=== PATIENT | male | born 1945 | race Caucasian/White ===

== ENCOUNTER 2023-03-30 11:40 | Emergency (ER) | payer MEDICARE ==
[~2023-03-30] VITALS: Ht 188 cm; Wt 127.0 kg
[~2023-03-30 11:40] MED LIST: AMLO-212 PO
[2023-03-30] MEDS ORDERED: HYDROCODONE/APAP 5-325MG TABLET PO ONE (12:15)
[2023-03-30] MEDS ORDERED: HYDROCODONE/APAP 5-325MG TABLET ONE (12:18)
[2023-03-30] MEDS ORDERED: HYDR-3980 PO (14:42)
[2023-03-30 15:01] VITALS: BP 118/81; TEMP 98.7; O2SAT 97
== END 2023-03-30 15:02 | disposition home or self-care (01) ==
LOC: ER 11:40
DX: S22.42XA Multiple fractures of ribs, left side, initial encounter for closed fracture (principal); Z79.899 Other long term (current) drug therapy; W10.9XXA Fall (on) (from) unspecified stairs and steps, initial encounter; Y93.89 Activity, other specified; Y92.89 Other specified places as the place of occurrence of the external cause; Y99.8 Other external cause status
CPT/HCPCS: 71250; A4663

== ENCOUNTER 2023-09-26 13:23 | Emergency (ER) | payer MEDICARE ==
[~2023-09-26] VITALS: Ht 188 cm; Wt 120.2 kg
[~2023-09-26 13:23] MED LIST changes: +ALBU8.5H8 INH; +AMOX-430 PO; +AZIT500T4 PO
[2023-09-26 15:05] LABS: BASOPHILS # (AUTO) 0.1 K/UL (0.0-0.2); BASOPHILS % (AUTO) 0.7 % (0.0-2.0); EOSINOPHILS # (AUTO) 0.2 K/uL (0.0-0.7); EOSINOPHILS % (AUTO) 2.3 % (0.0-7.0); HEMATOCRIT 44.3 % (36.7-47.1); HEMOGLOBIN 15.3 g/dL (12.5-16.3); LYMPHOCYTES # (AUTO) 1.8 K/uL (0.8-4.8); LYMPHOCYTES % (AUTO) 25.2 % (20.5-51.5); MEAN CORPUSCULAR HEMOGLOBIN 29.3 uug (23.8-33.4); MEAN CORPUSCULAR HGB CONC 35 g/dL (32.5-36.3); MEAN CORPUSCULAR VOLUME 84.8 fL (73.0-96.2); MONOCYTES # (AUTO) 0.4 K/uL (0.1-1.30); NEUTROPHILS # (AUTO) 4.7 K/uL (1.8-8.9); NEUTROPHILS % (AUTO) 65.8 % (38.5-71.5); PLATELET COUNT (AUTO) 164 K/uL (152-348); RED BLOOD CELL COUNT(AUTO) 5.22 MIL/uL (4.06-5.63); WHITE BLOOD COUNT (AUTO) 7.1 K/uL (3.6-10.2)
[2023-09-26 15:08] LABS: DIFFERENTIAL COMMENT 1
[2023-09-26 15:26] LABS: CALCIUM 8.7 mg/dL (8.5-10.1); CARBON DIOXIDE 29 mmol/L (21-32); CHLORIDE 104 mmol/L (98-107); CREATININE 0.9 mg/dL (0.6-1.3); GLUCOSE 84 mg/dL (74-106); MAGNESIUM 2.3 mg/dL (1.8-2.4); NT-PRO BNP 81 pg/mL (0-125); SODIUM SERUM 138 mmol/L (136-145); UREA NITROGEN, BLOOD 19 mg/dL (7-18)
[2023-09-26] MEDS ORDERED: GUAI120L56 PO (16:38)
[2023-09-26 17:56] VITALS: BP 157/95; TEMP 97.8; O2SAT 94
== END 2023-09-26 17:30 | disposition home or self-care (01) ==
LOC: ER 13:23
DX: J20.8 Acute bronchitis due to other specified organisms (principal); Z79.899 Other long term (current) drug therapy; Z98.890 Other specified postprocedural states; Z20.822 Contact with and (suspected) exposure to COVID-19; Z60.2 Problems related to living alone
CPT/HCPCS: 36415; 71045; 83735; 84484; 85025; A4606; A4663

== ENCOUNTER 2024-08-22 00:27 | Inpatient (IN) | payer MEDICARE ==
[2024-08-22] VITALS (8 sets, daily range): BP systolic 148–159; BP diastolic 83–93; TEMP 97.4–98.1; O2SAT 91–99
[~2024-08-22] VITALS: Ht 188 cm; Wt 129.3 kg
[~2024-08-22 00:27] MED LIST changes: +DOXY-326 PO; +GUAI120L56 PO
[2024-08-22 01:25] LABS: BASOPHILS # (AUTO) 0.1 K/UL (0.0-0.2); BASOPHILS % (AUTO) 1.1 % (0.0-2.0); EOSINOPHILS # (AUTO) 0.2 K/uL (0.0-0.7); EOSINOPHILS % (AUTO) 2.4 % (0.0-7.0); HEMATOCRIT 43.9 % (36.7-47.1); HEMOGLOBIN 15.4 g/dL (12.5-16.3); LYMPHOCYTES # (AUTO) 1.7 K/uL (0.8-4.8); LYMPHOCYTES % (AUTO) 19.9 % (20.5-51.5); MEAN CORPUSCULAR HEMOGLOBIN 29.2 uug (23.8-33.4); MEAN CORPUSCULAR HGB CONC 35 g/dL (32.5-36.3); MEAN CORPUSCULAR VOLUME 83.5 fL (73.0-96.2); MONOCYTES # (AUTO) 0.5 K/uL (0.1-1.30); MONOCYTES % (AUTO) 6.3 % (0.0-11.0); NEUTROPHILS % (AUTO) 70.3 % (38.5-71.5); PLATELET COUNT (AUTO) 150 K/uL (152-348); RED BLOOD CELL COUNT(AUTO) 5.26 MIL/uL (4.06-5.63); RED CELL DISTRIBUTION WIDTH 14.4 % (12.1-16.2); WHITE BLOOD COUNT (AUTO) 8.5 K/uL (3.6-10.2)
[2024-08-22] MEDS: IV NORMAL SALINE 500 ML BAG IV ONE (01:29)
[2024-08-22 01:40] LABS: CALCIUM 8.4 mg/dL (8.5-10.1); CARBON DIOXIDE 28 mmol/L (21-32); CHLORIDE 105 mmol/L (98-107); GLUCOSE 109 mg/dL (74-106); POTASSIUM 3.6 mmol/L (3.5-5.1); SODIUM SERUM 143 mmol/L (136-145); UREA NITROGEN, BLOOD 19 mg/dL (7-18)
[2024-08-22 01:45] LABS: DIFFERENTIAL COMMENT 1
[2024-08-22 02:08] LABS: ALBUMIN 3.2 g/dL (3.4-5.0); BILIRUBIN,DIRECT 0.1 mg/dL (0.0-0.2); BILIRUBIN,TOTAL 0.5 mg/dL (0.2-1.0); TOTAL PROTEIN, SERUM 7.4 g/dL (6.4-8.2)
[2024-08-22] MEDS ORDERED: ACETAMINOPHEN 325 MG TABLET PO PRN (03:00)
[2024-08-22] MEDS ORDERED: REMEDY ESSENTIAL ZINC PASTE 113 GM TP PRN (03:00)
[2024-08-22] MEDS ORDERED: ONDANSETRON 4 MG/2 ML VIAL IV PRN (03:00)
[2024-08-22 07:42] LABS: BASOPHILS # (AUTO) 0.1 K/UL (0.0-0.2); BASOPHILS % (AUTO) 1.4 % (0.0-2.0); EOSINOPHILS # (AUTO) 0.2 K/uL (0.0-0.7); EOSINOPHILS % (AUTO) 2.2 % (0.0-7.0); HEMATOCRIT 40.4 % (36.7-47.1); HEMOGLOBIN 14.2 g/dL (12.5-16.3); LYMPHOCYTES # (AUTO) 1.5 K/uL (0.8-4.8); MEAN CORPUSCULAR HEMOGLOBIN 29.6 uug (23.8-33.4); MEAN CORPUSCULAR HGB CONC 35 g/dL (32.5-36.3); MONOCYTES # (AUTO) 0.5 K/uL (0.1-1.30); MONOCYTES % (AUTO) 7.2 % (0.0-11.0); NEUTROPHILS # (AUTO) 4.7 K/uL (1.8-8.9); NEUTROPHILS % (AUTO) 67.2 % (38.5-71.5); PLATELET COUNT (AUTO) 141 K/uL (152-348); RED BLOOD CELL COUNT(AUTO) 4.81 MIL/uL (4.06-5.63); RED CELL DISTRIBUTION WIDTH 14.2 % (12.1-16.2); WHITE BLOOD COUNT (AUTO) 6.9 K/uL (3.6-10.2)
[2024-08-22 07:52] LABS: DIFFERENTIAL COMMENT 1
[2024-08-22 08:04] LABS: CALCIUM 8.1 mg/dL (8.5-10.1); CARBON DIOXIDE 30 mmol/L (21-32); CHLORIDE 110 mmol/L (98-107); CREATININE 1.1 mg/dL (0.6-1.3); GLUCOSE 92 mg/dL (74-106); MAGNESIUM 2.2 mg/dL (1.8-2.4); PHOSPHOROUS 3.5 mg/dL (2.5-4.9); POTASSIUM 3.3 mmol/L (3.5-5.1); SODIUM SERUM 148 mmol/L (136-145); UREA NITROGEN, BLOOD 19 mg/dL (7-18)
[2024-08-22] MEDS: AMLODIPINE 5 MG TABLET PO SCH (10:21)
[2024-08-22] MEDS: POTASSIUM CHLORIDE 20 MEQ TAB.PRT.SR PO ONE ×2 (10:21→11:37)
[2024-08-22] MEDS: IV 1/2NS 1000 ML 1,000 ML IV SCH (10:22)
[2024-08-22] MEDS: MAGNESIUM HYDROXIDE 30 ML LIQUID UDC PO PRN (20:29)
[2024-08-22] MEDS: ALBUTEROL SULFATE 2.5 MG/3 ML NEBU NEB PRN (22:28)
[2024-08-23] VITALS (10 sets, daily range): BP systolic 139–153; BP diastolic 50–98; TEMP 97.8–98.6; O2SAT 94–97
[2024-08-23] MEDS: IV 1/2NS 1000 ML 1,000 ML IV PRN (07:28)
[2024-08-23] MEDS ORDERED: SWABABLE VALVE TRANSFER SET EA MC ONE (15:30)
[2024-08-23] MEDS ORDERED: IOHEXOL 350 100 ML INFUS..BTL ONE (15:30)
[2024-08-23] MEDS ORDERED: IV NORMAL SALINE 250 ML IV ONE (15:30)
[2024-08-23] MEDS: ASPIRIN EC 81 MG TABLET.DR PO SCH (15:57)
[2024-08-24] VITALS (13 sets, daily range): BP systolic 138–163; BP diastolic 55–87; TEMP 97.9–98.3; O2SAT 92–98
[2024-08-24 06:38] LABS: BASOPHILS # (AUTO) 0.1 K/UL (0.0-0.2); BASOPHILS % (AUTO) 0.9 % (0.0-2.0); EOSINOPHILS # (AUTO) 0.3 K/uL (0.0-0.7); EOSINOPHILS % (AUTO) 3.4 % (0.0-7.0); HEMATOCRIT 41.2 % (36.7-47.1); HEMOGLOBIN 14.3 g/dL (12.5-16.3); LYMPHOCYTES # (AUTO) 1.1 K/uL (0.8-4.8); LYMPHOCYTES % (AUTO) 14.6 % (20.5-51.5); MEAN CORPUSCULAR HEMOGLOBIN 29.2 uug (23.8-33.4); MEAN CORPUSCULAR HGB CONC 35 g/dL (32.5-36.3); MEAN CORPUSCULAR VOLUME 84.3 fL (73.0-96.2); MONOCYTES # (AUTO) 0.5 K/uL (0.1-1.30); MONOCYTES % (AUTO) 6.7 % (0.0-11.0); NEUTROPHILS # (AUTO) 5.7 K/uL (1.8-8.9); NEUTROPHILS % (AUTO) 74.4 % (38.5-71.5); PLATELET COUNT (AUTO) 142 K/uL (152-348); RED BLOOD CELL COUNT(AUTO) 4.89 MIL/uL (4.06-5.63); RED CELL DISTRIBUTION WIDTH 14.2 % (12.1-16.2); WHITE BLOOD COUNT (AUTO) 7.6 K/uL (3.6-10.2)
[2024-08-24 07:13] LABS: DIFFERENTIAL COMMENT 1
[2024-08-24 07:16] LABS: CALCIUM 7.9 mg/dL (8.5-10.1); CARBON DIOXIDE 26 mmol/L (21-32); CHLORIDE 105 mmol/L (98-107); CHOLESTEROL 121 mg/dL (<200); CREATININE 0.8 mg/dL (0.6-1.3); GLUCOSE 92 mg/dL (74-106); HDL CHOLESTEROL 36 mg/dL (40-60); POTASSIUM 3.9 mmol/L (3.5-5.1); SODIUM SERUM 139 mmol/L (136-145); TRIGLYCERIDES 113 MG/DL (30-150); UREA NITROGEN, BLOOD 15 mg/dL (7-18)
[2024-08-24 08:42] LABS: THYROID STIMULATING HORMONE 1.201 mIU/mL (0.358-3.740)
[2024-08-24] MEDS ORDERED: CLONIDINE HCL 0.1 MG TABLET PO PRN (09:15)
[2024-08-24 09:33] LABS: ABG HCO3 24.3 mmol/L (21.0-28.0); ABG PCO2 38.9 mmHg (35.0-48.0); ABG PH 7.414 (7.350-7.450); ABG PO2 63.8 mmHg (83.0-108.0); ABG SITE RIGHT RADIAL; ABG TOTAL HEMOGLOBIN 15.5 G/dL (13.5-17.5); AaDO2 92.7 mmHg; COHb 1.2 % (0.5-1.5); MetHb 0.1 % (0.0-1.5); O2Hb 91.5 % (94.0-98.0)
[2024-08-24 13:42] LABS: C-REACTIVE PROTEIN 0.95 mg/dL (0.00-0.30)
[2024-08-24 13:57] LABS: ETHANOL < 3 MG/DL (0-10)
[2024-08-24] MEDS: CYANOCOBALAMIN 1000 MCG/ML VIAL IM SCH (14:00)
[2024-08-24] MEDS: FOLIC ACID 1 MG TABLET PO SCH (15:04)
[2024-08-24] MEDS: IPRATROPIUM BROMIDE 0.5 MG/2.5 ML NEBU NEB SCH (15:30)
[2024-08-24] MEDS: ALBUTEROL SULFATE 2.5 MG/3 ML NEBU NEB SCH (15:30)
[2024-08-24] MEDS: THIAMINE HCL INJ 200 MG in IV DEXTROSE 5% 50 ML IV SCH (15:40)
[2024-08-25] VITALS (15 sets, daily range): BP systolic 149–163; BP diastolic 89–102; TEMP 97.7–98.2; O2SAT 94–99
[2024-08-25 06:47] LABS: BASOPHILS # (AUTO) 0.1 K/UL (0.0-0.2); BASOPHILS % (AUTO) 1.4 % (0.0-2.0); EOSINOPHILS # (AUTO) 0.2 K/uL (0.0-0.7); HEMATOCRIT 40.8 % (36.7-47.1); LYMPHOCYTES # (AUTO) 1.1 K/uL (0.8-4.8); LYMPHOCYTES % (AUTO) 14.7 % (20.5-51.5); MEAN CORPUSCULAR HEMOGLOBIN 28.9 uug (23.8-33.4); MEAN CORPUSCULAR HGB CONC 34 g/dL (32.5-36.3); MEAN CORPUSCULAR VOLUME 84.5 fL (73.0-96.2); MONOCYTES # (AUTO) 0.5 K/uL (0.1-1.30); MONOCYTES % (AUTO) 6.5 % (0.0-11.0); NEUTROPHILS # (AUTO) 5.5 K/uL (1.8-8.9); NEUTROPHILS % (AUTO) 74.4 % (38.5-71.5); PLATELET COUNT (AUTO) 139 K/uL (152-348); RED BLOOD CELL COUNT(AUTO) 4.83 MIL/uL (4.06-5.63); RED CELL DISTRIBUTION WIDTH 14.4 % (12.1-16.2); WHITE BLOOD COUNT (AUTO) 7.4 K/uL (3.6-10.2)
[2024-08-25 07:10] LABS: DIFFERENTIAL COMMENT 1
[2024-08-25 07:14] LABS: CARBON DIOXIDE 27 mmol/L (21-32); CHLORIDE 105 mmol/L (98-107); CREATININE 0.7 mg/dL (0.6-1.3); GLUCOSE 97 mg/dL (74-106); MAGNESIUM 2.2 mg/dL (1.8-2.4); PHOSPHOROUS 3.3 mg/dL (2.5-4.9); POTASSIUM 3.7 mmol/L (3.5-5.1); SODIUM SERUM 139 mmol/L (136-145); UREA NITROGEN, BLOOD 10 mg/dL (7-18)
[2024-08-25] MEDS: CYANOCOBALAMIN 1000 MCG/ML VIAL IM SCH (08:11)
[2024-08-25] MEDS ORDERED: POTASSIUM CHLORIDE 20 MEQ POWDER PACKET GT ONE (08:15)
[2024-08-25] MEDS: POTASSIUM CHLORIDE 20 MEQ TAB.PRT.SR PO ONE (09:33)
[2024-08-25] MEDS: ENOXAPARIN SODIUM 40 MG/0.4 ML DISP.SYRIN SQ SCH (09:34)
[2024-08-26] VITALS (18 sets, daily range): BP systolic 140–147; BP diastolic 87–95; TEMP 98.1–98.7; O2SAT 92–99
[2024-08-26 07:27] LABS: BASOPHILS # (AUTO) 0.1 K/UL (0.0-0.2); EOSINOPHILS # (AUTO) 0.3 K/uL (0.0-0.7); EOSINOPHILS % (AUTO) 4.3 % (0.0-7.0); HEMATOCRIT 41.6 % (36.7-47.1); HEMOGLOBIN 14.5 g/dL (12.5-16.3); LYMPHOCYTES # (AUTO) 1.2 K/uL (0.8-4.8); LYMPHOCYTES % (AUTO) 16.3 % (20.5-51.5); MEAN CORPUSCULAR HEMOGLOBIN 29.8 uug (23.8-33.4); MEAN CORPUSCULAR HGB CONC 35 g/dL (32.5-36.3); MEAN CORPUSCULAR VOLUME 85.8 fL (73.0-96.2); MONOCYTES # (AUTO) 0.5 K/uL (0.1-1.30); MONOCYTES % (AUTO) 6.3 % (0.0-11.0); NEUTROPHILS # (AUTO) 5.4 K/uL (1.8-8.9); NEUTROPHILS % (AUTO) 72.1 % (38.5-71.5); PLATELET COUNT (AUTO) 152 K/uL (152-348); RED BLOOD CELL COUNT(AUTO) 4.85 MIL/uL (4.06-5.63); RED CELL DISTRIBUTION WIDTH 14.3 % (12.1-16.2); WHITE BLOOD COUNT (AUTO) 7.4 K/uL (3.6-10.2)
[2024-08-26 07:42] LABS: DIFFERENTIAL COMMENT 1
[2024-08-26 07:54] LABS: CALCIUM 8.3 mg/dL (8.5-10.1); CARBON DIOXIDE 27 mmol/L (21-32); CHLORIDE 106 mmol/L (98-107); CREATININE 0.9 mg/dL (0.6-1.3); GLUCOSE 93 mg/dL (74-106); MAGNESIUM 2.3 mg/dL (1.8-2.4); PHOSPHOROUS 2.9 mg/dL (2.5-4.9); POTASSIUM 3.8 mmol/L (3.5-5.1); SODIUM SERUM 140 mmol/L (136-145); UREA NITROGEN, BLOOD 11 mg/dL (7-18)
[2024-08-26] MEDS: FUROSEMIDE 40 MG/4 ML VIAL IV ONE (09:36)
[2024-08-27] VITALS (16 sets, daily range): BP systolic 112–136; BP diastolic 86–97; TEMP 98–98.7; O2SAT 94–99
[2024-08-28] VITALS (16 sets, daily range): BP systolic 129–157; BP diastolic 78–90; TEMP 97.1–98.4; O2SAT 92–100
[2024-08-28] MEDS ORDERED: THIAMINE HCL 200 MG/2 ML VIAL ONE (21:46)
[2024-08-29 00:37] VITALS: BP 116/54; TEMP 98; O2SAT 95
[2024-08-29 02:30] VITALS: O2SAT 94
[2024-08-29 02:40] VITALS: O2SAT 98
[2024-08-29] MEDS ORDERED: ENOX40DI SQ (05:21)
[2024-08-29] MEDS ORDERED: AMLO-212 PO (05:21)
[2024-08-29] MEDS ORDERED: IPRA0.2S48 NEB (05:21)
[2024-08-29] MEDS ORDERED: ONDA4TAB11 PO (05:21)
[2024-08-29] MEDS ORDERED: FOLI1TAB94 PO (05:21)
[2024-08-29] MEDS ORDERED: THIA100T74 PO (05:21)
[2024-08-29] MEDS ORDERED: ALBU2.5V38 NEB ×2 (05:21)
[2024-08-29] MEDS ORDERED: ASPI81TA31 PO (05:21)
[2024-08-29] MEDS ORDERED: ACET325T53 PO (05:21)
[2024-08-29] MEDS ORDERED: CLON-418 PO (05:21)
[2024-08-29] MEDS ORDERED: MAGN400O6 PO (05:21)
[2024-08-29] MEDS ORDERED: CYAN10006 IM (05:21)
[2024-08-29 08:12] LABS: BASOPHILS # (AUTO) 0.1 K/UL (0.0-0.2); EOSINOPHILS # (AUTO) 0.3 K/uL (0.0-0.7); EOSINOPHILS % (AUTO) 3.6 % (0.0-7.0); HEMATOCRIT 42.8 % (36.7-47.1); HEMOGLOBIN 14.8 g/dL (12.5-16.3); LYMPHOCYTES # (AUTO) 1.1 K/uL (0.8-4.8); LYMPHOCYTES % (AUTO) 13.6 % (20.5-51.5); MEAN CORPUSCULAR HEMOGLOBIN 29.7 uug (23.8-33.4); MEAN CORPUSCULAR HGB CONC 35 g/dL (32.5-36.3); MEAN CORPUSCULAR VOLUME 85.8 fL (73.0-96.2); MONOCYTES # (AUTO) 0.5 K/uL (0.1-1.30); MONOCYTES % (AUTO) 6.4 % (0.0-11.0); NEUTROPHILS # (AUTO) 5.9 K/uL (1.8-8.9); NEUTROPHILS % (AUTO) 75.4 % (38.5-71.5); PLATELET COUNT (AUTO) 153 K/uL (152-348); RED BLOOD CELL COUNT(AUTO) 4.98 MIL/uL (4.06-5.63); RED CELL DISTRIBUTION WIDTH 14.7 % (12.1-16.2); WHITE BLOOD COUNT (AUTO) 7.9 K/uL (3.6-10.2)
[2024-08-29 08:22] LABS: DIFFERENTIAL COMMENT 1
[2024-08-29 08:30] LABS: CALCIUM 8.6 mg/dL (8.5-10.1); CARBON DIOXIDE 26 mmol/L (21-32); CHLORIDE 105 mmol/L (98-107); CREATININE 0.8 mg/dL (0.6-1.3); GLUCOSE 95 mg/dL (74-106); MAGNESIUM 2.4 mg/dL (1.8-2.4); PHOSPHOROUS 3.7 mg/dL (2.5-4.9); POTASSIUM 4.4 mmol/L (3.5-5.1); SODIUM SERUM 141 mmol/L (136-145); UREA NITROGEN, BLOOD 18 mg/dL (7-18)
[2024-08-29] MEDS ORDERED: CLON0.1T PO (09:23)
[2024-08-29] MEDS ORDERED: IPRA0.2S6 NEB (09:24)
== END 2024-08-29 03:39 | DRG 152 ==
LOC: ER 00:34 → MEDSURG3 06:11 → MEDSURG1 08-27 08:56
PROVIDERS: ATTEND Internal Medicine
DX: J06.9 Acute upper respiratory infection, unspecified (principal); J96.01 Acute respiratory failure with hypoxia; D68.59 Other primary thrombophilia; E51.2 Wernicke's encephalopathy; G31.9 Degenerative disease of nervous system, unspecified; I11.9 Hypertensive heart disease without heart failure; B96.89 Other specified bacterial agents as the cause of diseases classified elsewhere; J40 Bronchitis, not specified as acute or chronic; R53.1 Weakness; R26.2 Difficulty in walking, not elsewhere classified; E66.01 Morbid (severe) obesity due to excess calories; Z68.36 Body mass index [BMI] 36.0-36.9, adult; Z87.01 Personal history of pneumonia (recurrent); Z96.653 Presence of artificial knee joint, bilateral; Z79.899 Other long term (current) drug therapy; M15.9 Polyosteoarthritis, unspecified; D51.9 Vitamin B12 deficiency anemia, unspecified; H54.7 Unspecified visual loss
CPT/HCPCS: 36415; 36600; 70450; 70496; 71045; 82803; 83735; 83921; 84100; 84443; 84484; 85025; 85730; 86140; 93307; 94640; 94664; 94760; A4663; G0378; G0480; J1650; J1940; J3411; J3420; J3590; J7040; Q9967

== ENCOUNTER → 2024-09-05 14:00 | Inpatient (IN) | payer MEDICARE ==
[2024-08-29] VITALS (12 sets, daily range): BP systolic 123–143; BP diastolic 80–88; TEMP 97.4–97.9; O2SAT 94–97
[2024-08-29] MEDS: ENOXAPARIN SODIUM 40 MG/0.4 ML DISP.SYRIN SQ SCH (11:01)
[2024-08-29] MEDS: CYANOCOBALAMIN 1000 MCG/ML VIAL IM SCH (11:02)
[2024-08-29] MEDS: ASPIRIN 81 MG TAB.CHEW PO SCH (11:02)
[2024-08-29] MEDS: IPRATROPIUM BROMIDE 0.5 MG/2.5 ML NEBU NEB SCH ×2 (11:51→14:43)
[2024-08-29] MEDS: ALBUTEROL SULFATE 2.5 MG/3 ML NEBU NEB SCH (11:51)
[2024-08-29 13:04] LABS: BASOPHILS # (AUTO) 0.1 K/UL (0.0-0.2); BASOPHILS % (AUTO) 1.3 % (0.0-2.0); EOSINOPHILS # (AUTO) 0.3 K/uL (0.0-0.7); EOSINOPHILS % (AUTO) 3.9 % (0.0-7.0); HEMATOCRIT 44.7 % (36.7-47.1); HEMOGLOBIN 15.3 g/dL (12.5-16.3); LYMPHOCYTES # (AUTO) 1.1 K/uL (0.8-4.8); LYMPHOCYTES % (AUTO) 12.4 % (20.5-51.5); MEAN CORPUSCULAR HEMOGLOBIN 29.1 uug (23.8-33.4); MEAN CORPUSCULAR HGB CONC 34 g/dL (32.5-36.3); MEAN CORPUSCULAR VOLUME 85.2 fL (73.0-96.2); MONOCYTES # (AUTO) 0.5 K/uL (0.1-1.30); MONOCYTES % (AUTO) 5.3 % (0.0-11.0); NEUTROPHILS # (AUTO) 6.7 K/uL (1.8-8.9); NEUTROPHILS % (AUTO) 77.1 % (38.5-71.5); PLATELET COUNT (AUTO) 169 K/uL (152-348); RED BLOOD CELL COUNT(AUTO) 5.25 MIL/uL (4.06-5.63); RED CELL DISTRIBUTION WIDTH 14.4 % (12.1-16.2); WHITE BLOOD COUNT (AUTO) 8.7 K/uL (3.6-10.2)
[2024-08-29 13:10] LABS: CALCIUM 8.7 mg/dL (8.5-10.1); CARBON DIOXIDE 28 mmol/L (21-32); CHLORIDE 105 mmol/L (98-107); CREATININE 0.9 mg/dL (0.6-1.3); GLUCOSE 123 mg/dL (74-106); SODIUM SERUM 142 mmol/L (136-145); UREA NITROGEN, BLOOD 19 mg/dL (7-18)
[2024-08-29 13:12] LABS: DIFFERENTIAL COMMENT 1
[2024-08-29 13:23] LABS: THYROID STIMULATING HORMONE 2.546 mIU/mL (0.358-3.740)
[2024-08-29] MEDS: THIAMINE HCL 100 MG TABLET PO SCH (14:27)
[2024-08-30] VITALS (15 sets, daily range): BP systolic 113–141; BP diastolic 56–82; TEMP 97.5–97.8; O2SAT 93–98
[2024-08-30] MEDS: methylPREDNISolone 4 MG TABLET PO ONE ×4 (06:56→20:45)
[2024-08-30] MEDS: AMLODIPINE 5 MG TABLET PO SCH (08:55)
[2024-08-31] VITALS (15 sets, daily range): BP systolic 124–152; BP diastolic 71–90; TEMP 97.6–97.8; O2SAT 93–100
[2024-08-31] MEDS: methylPREDNISolone 4 MG TABLET PO ONE ×4 (06:26→21:40)
[2024-08-31] MEDS: FOLIC ACID 1 MG TABLET PO SCH (09:06)
[2024-09-01] VITALS (17 sets, daily range): BP systolic 108–150; BP diastolic 54–88; TEMP 97.5–98.6; O2SAT 90–100
[2024-09-01] MEDS: methylPREDNISolone 4 MG TABLET PO ONE ×4 (06:43→21:11)
[2024-09-01 07:39] LABS: BASOPHILS % (AUTO) 0.6 % (0.0-2.0); EOSINOPHILS % (AUTO) 0.1 % (0.0-7.0); HEMATOCRIT 41.2 % (36.7-47.1); LYMPHOCYTES # (AUTO) 0.9 K/uL (0.8-4.8); LYMPHOCYTES % (AUTO) 11.4 % (20.5-51.5); MEAN CORPUSCULAR HEMOGLOBIN 29.2 uug (23.8-33.4); MEAN CORPUSCULAR HGB CONC 34 g/dL (32.5-36.3); MEAN CORPUSCULAR VOLUME 85.6 fL (73.0-96.2); MONOCYTES # (AUTO) 0.3 K/uL (0.1-1.30); MONOCYTES % (AUTO) 3.6 % (0.0-11.0); NEUTROPHILS # (AUTO) 6.3 K/uL (1.8-8.9); NEUTROPHILS % (AUTO) 84.3 % (38.5-71.5); PLATELET COUNT (AUTO) 148 K/uL (152-348); RED BLOOD CELL COUNT(AUTO) 4.81 MIL/uL (4.06-5.63); RED CELL DISTRIBUTION WIDTH 14.8 % (12.1-16.2); WHITE BLOOD COUNT (AUTO) 7.5 K/uL (3.6-10.2)
[2024-09-01 07:54] LABS: DIFFERENTIAL COMMENT 1
[2024-09-01 07:59] LABS: CALCIUM 8.5 mg/dL (8.5-10.1); CARBON DIOXIDE 29 mmol/L (21-32); CHLORIDE 108 mmol/L (98-107); CREATININE 0.8 mg/dL (0.6-1.3); GLUCOSE 105 mg/dL (74-106); MAGNESIUM 2.3 mg/dL (1.8-2.4); PHOSPHOROUS 3.7 mg/dL (2.5-4.9); POTASSIUM 3.9 mmol/L (3.5-5.1); SODIUM SERUM 144 mmol/L (136-145); UREA NITROGEN, BLOOD 22 mg/dL (7-18)
[2024-09-01] MEDS: CLONIDINE HCL 0.1 MG TABLET PO PRN (21:13)
[2024-09-02] VITALS (16 sets, daily range): BP systolic 125–160; BP diastolic 70–92; TEMP 97.3–97.8; O2SAT 92–99
[2024-09-02] MEDS: methylPREDNISolone 4 MG TABLET PO ONE ×3 (06:36→21:16)
[2024-09-03] VITALS (13 sets, daily range): BP systolic 113–146; BP diastolic 70–82; TEMP 97.2–99.2; O2SAT 91–100
[2024-09-03] MEDS: methylPREDNISolone 4 MG TABLET PO ONE ×2 (06:06→21:27)
[2024-09-03 08:51] LABS: BASOPHILS # (AUTO) 0.1 K/UL (0.0-0.2); BASOPHILS % (AUTO) 0.6 % (0.0-2.0); EOSINOPHILS # (AUTO) 0.1 K/uL (0.0-0.7); EOSINOPHILS % (AUTO) 1.2 % (0.0-7.0); HEMOGLOBIN 14.4 g/dL (12.5-16.3); LYMPHOCYTES # (AUTO) 1.6 K/uL (0.8-4.8); LYMPHOCYTES % (AUTO) 18.8 % (20.5-51.5); MEAN CORPUSCULAR HEMOGLOBIN 29.3 uug (23.8-33.4); MEAN CORPUSCULAR HGB CONC 34 g/dL (32.5-36.3); MEAN CORPUSCULAR VOLUME 87.2 fL (73.0-96.2); MONOCYTES # (AUTO) 0.6 K/uL (0.1-1.30); MONOCYTES % (AUTO) 6.9 % (0.0-11.0); NEUTROPHILS # (AUTO) 6.1 K/uL (1.8-8.9); NEUTROPHILS % (AUTO) 72.5 % (38.5-71.5); PLATELET COUNT (AUTO) 149 K/uL (152-348); RED BLOOD CELL COUNT(AUTO) 4.93 MIL/uL (4.06-5.63); RED CELL DISTRIBUTION WIDTH 14.8 % (12.1-16.2); WHITE BLOOD COUNT (AUTO) 8.4 K/uL (3.6-10.2)
[2024-09-03 09:01] LABS: DIFFERENTIAL COMMENT 1
[2024-09-03 09:05] LABS: CALCIUM 8.4 mg/dL (8.5-10.1); CARBON DIOXIDE 29 mmol/L (21-32); CHLORIDE 107 mmol/L (98-107); CREATININE 0.9 mg/dL (0.6-1.3); GLUCOSE 83 mg/dL (74-106); MAGNESIUM 2.3 mg/dL (1.8-2.4); PHOSPHOROUS 3.3 mg/dL (2.5-4.9); POTASSIUM 3.6 mmol/L (3.5-5.1); SODIUM SERUM 145 mmol/L (136-145); UREA NITROGEN, BLOOD 25 mg/dL (7-18)
[2024-09-04] VITALS (16 sets, daily range): BP systolic 129–135; BP diastolic 69–91; TEMP 95–98; O2SAT 90–100
[2024-09-04] MEDS: methylPREDNISolone 4 MG TABLET PO ONE (06:16)
[~2024-09-05] VITALS: Ht 188 cm; Wt 129.3 kg
[2024-09-05 07:00] VITALS: O2SAT 98
[2024-09-05 07:15] VITALS: O2SAT 99
[2024-09-05 07:42] VITALS: BP 145/74; TEMP 97.8; O2SAT 94
[2024-09-05 11:00] VITALS: O2SAT 93
[2024-09-05 11:15] VITALS: O2SAT 99
[2024-09-05 12:31] VITALS: BP 122/83; TEMP 97.5; O2SAT 91
[~2024-09-05 14:00] MED LIST changes: +ACET325T53 PO; +ACETAMINOPHEN 325 MG TABLET PO PRN; +ACETAMINOPHEN 325 MG TABLET-SA PATIENTS-PAIN ONLY PO PRN; +ALBU2.5V38 NEB; -ALBU8.5H8 INH; +ALBUTEROL SULFATE 2.5 MG/3 ML NEBU NEB PRN; -AMOX-430 PO; +ASPI81TA31 PO; -AZIT500T4 PO; +CLON-418 PO; +CLON0.1T PO; +CYAN10006 IM; -DOXY-326 PO; +ENOX40DI SQ; +FOLI1TAB94 PO; -GUAI120L56 PO; +IPRA0.2S48 NEB; +IPRA0.2S6 NEB; +MAGN400O6 PO; +MAGNESIUM HYDROXIDE 30 ML LIQUID UDC PO PRN; +ONDA4TAB11 PO; +REMEDY ESSENTIAL ZINC PASTE 113 GM TOP PRN; +THIA100T74 PO; +methylPREDNISolone 1 PACK TAB.DS.PK [4MG TAB] PO ONE
== END | disposition home health service (06) | DRG 947 ==
LOC: UNDOADMIN 08-28 23:59
PROVIDERS: ADMIT Physical Medicine & Rehabilitation Pain Medicine; ATTEND Physical Medicine & Rehabilitation Pain Medicine
DX: R53.1 Weakness (principal); J96.01 Acute respiratory failure with hypoxia; D68.59 Other primary thrombophilia; R47.01 Aphasia; J98.11 Atelectasis; R53.81 Other malaise; E66.01 Morbid (severe) obesity due to excess calories; H54.7 Unspecified visual loss; I10 Essential (primary) hypertension; Z96.653 Presence of artificial knee joint, bilateral; G31.9 Degenerative disease of nervous system, unspecified; Z68.36 Body mass index [BMI] 36.0-36.9, adult; B96.89 Other specified bacterial agents as the cause of diseases classified elsewhere; J45.909 Unspecified asthma, uncomplicated
CPT/HCPCS: 36415; 71045; 83735; 83921; 84100; 84443; 85025; 94640; 94760; 97535-GO-CO; J1650; J3420; J3590; J7509

== ENCOUNTER 2024-10-27 08:09 | Emergency (ER) | payer MEDICARE ==
[~2024-10-27] VITALS: Ht 172.7 cm; Wt 129.7 kg
[~2024-10-27 08:09] MED LIST changes: -ACETAMINOPHEN 325 MG TABLET PO PRN; -ACETAMINOPHEN 325 MG TABLET-SA PATIENTS-PAIN ONLY PO PRN; -ALBUTEROL SULFATE 2.5 MG/3 ML NEBU NEB PRN; -CLON-418 PO; -MAGNESIUM HYDROXIDE 30 ML LIQUID UDC PO PRN; -REMEDY ESSENTIAL ZINC PASTE 113 GM TOP PRN; -methylPREDNISolone 1 PACK TAB.DS.PK [4MG TAB] PO ONE
[2024-10-27] MEDS ORDERED: LIDOCAINE 1%-EPI 1:100,000 20 ML VIAL ONE (08:50)
[2024-10-27] MEDS: LIDOCAINE 2%-EPI 1:100,000 20 ML VIAL IJ ONE (08:53)
[2024-10-27 09:04] LABS: BASOPHILS # (AUTO) 0.1 K/UL (0.0-0.2); EOSINOPHILS # (AUTO) 0.2 K/uL (0.0-0.7); EOSINOPHILS % (AUTO) 2.9 % (0.0-7.0); HEMATOCRIT 40.6 % (36.7-47.1); HEMOGLOBIN 13.8 g/dL (12.5-16.3); LYMPHOCYTES # (AUTO) 1.1 K/uL (0.8-4.8); LYMPHOCYTES % (AUTO) 15.9 % (20.5-51.5); MEAN CORPUSCULAR HEMOGLOBIN 28.9 uug (23.8-33.4); MEAN CORPUSCULAR HGB CONC 34 g/dL (32.5-36.3); MEAN CORPUSCULAR VOLUME 85.1 fL (73.0-96.2); MONOCYTES # (AUTO) 0.4 K/uL (0.1-1.30); MONOCYTES % (AUTO) 6.6 % (0.0-11.0); NEUTROPHILS % (AUTO) 73.6 % (38.5-71.5); PLATELET COUNT (AUTO) 158 K/uL (152-348); RED BLOOD CELL COUNT(AUTO) 4.76 MIL/uL (4.06-5.63); RED CELL DISTRIBUTION WIDTH 14.9 % (12.1-16.2); WHITE BLOOD COUNT (AUTO) 6.8 K/uL (3.6-10.2)
[2024-10-27 09:08] LABS: CALCIUM 8.5 mg/dL (8.5-10.1); CARBON DIOXIDE 30 mmol/L (21-32); CHLORIDE 106 mmol/L (98-107); CREATININE 0.9 mg/dL (0.6-1.3); GLUCOSE 98 mg/dL (74-106); POTASSIUM 3.3 mmol/L (3.5-5.1); SODIUM SERUM 144 mmol/L (136-145); UREA NITROGEN, BLOOD 18 mg/dL (7-18)
[2024-10-27 09:12] LABS: DIFFERENTIAL COMMENT 1
[2024-10-27] MEDS ORDERED: CYANOCOBALAMIN 1000 MCG/ML VIAL ONE (10:05)
[2024-10-27] MEDS: CYANOCOBALAMIN 1000 MCG/ML VIAL IM ONE (10:06)
[2024-10-27 10:41] VITALS: BP 148/82; TEMP 98
[2024-10-27 13:53] VITALS: O2SAT 97
== END 2024-10-27 13:56 | disposition home or self-care (01) ==
LOC: ER 08:16
DX: R04.0 Epistaxis (principal); E53.8 Deficiency of other specified B group vitamins; Z79.82 Long term (current) use of aspirin; Z96.653 Presence of artificial knee joint, bilateral
CPT/HCPCS: 99284; 80048; 82607; 85025; 85730; 36415; 30901; 96372; J3420; J3490; A4606; A4663

== ENCOUNTER 2024-10-28 00:45 | Emergency (ER) | payer MEDICARE ==
[~2024-10-28] VITALS: Ht 177.8 cm; Wt 129.7 kg
[2024-10-28] MEDS: IPRATROPIUM BROMIDE 0.5 MG/2.5 ML NEBU NEB ONE (01:28)
[2024-10-28] MEDS: ALBUTEROL SULFATE 2.5 MG/3 ML NEBU NEB ONE (01:28)
[2024-10-28] MEDS ORDERED: NITROGLYCERIN OINT 1 GM PACKET TP ONE (01:30)
[2024-10-28] MEDS ORDERED: ASPIRIN 81 MG TAB.CHEW PO ONE (01:30)
[2024-10-28] MEDS ORDERED: IPRATROPIUM BROMIDE 0.5 MG/2.5 ML NEBU ONE (01:35)
[2024-10-28] MEDS ORDERED: ALBUTEROL SULFATE 2.5 MG/3 ML NEBU ONE (01:35)
[2024-10-28] MEDS ORDERED: LIDOCAINE 4% TOPICAL 50 ML BOTTLE ONE (01:37)
[2024-10-28] MEDS ORDERED: TRANEXAMIC ACID 1,000 MG/10 ML VIAL ONE (01:37)
[2024-10-28] MEDS ORDERED: OXYMETAZOLINE NASAL 0.05% 15 ML SPRAY NS ONE ×2 (01:37→01:38)
[2024-10-28] MEDS ORDERED: SILVER NITRATE APPLICATOR STICK EACH TP ONE (01:40)
[2024-10-28] MEDS: FUROSEMIDE 20 MG/2 ML VIAL IV ONE (01:43)
[2024-10-28] MEDS: methylPREDNISolone SOD SUCC 125 MG/2 ML VIAL IV ONE (01:44)
[2024-10-28 01:58] LABS: BASOPHILS # (AUTO) 0.1 K/UL (0.0-0.2); BASOPHILS % (AUTO) 1.4 % (0.0-2.0); EOSINOPHILS # (AUTO) 0.2 K/uL (0.0-0.7); EOSINOPHILS % (AUTO) 2.8 % (0.0-7.0); HEMATOCRIT 40.3 % (36.7-47.1); HEMOGLOBIN 13.7 g/dL (12.5-16.3); LYMPHOCYTES # (AUTO) 1.3 K/uL (0.8-4.8); LYMPHOCYTES % (AUTO) 15.2 % (20.5-51.5); MEAN CORPUSCULAR HEMOGLOBIN 28.6 uug (23.8-33.4); MEAN CORPUSCULAR HGB CONC 34 g/dL (32.5-36.3); MEAN CORPUSCULAR VOLUME 84.3 fL (73.0-96.2); MONOCYTES # (AUTO) 0.5 K/uL (0.1-1.30); MONOCYTES % (AUTO) 5.8 % (0.0-11.0); NEUTROPHILS # (AUTO) 6.2 K/uL (1.8-8.9); NEUTROPHILS % (AUTO) 74.8 % (38.5-71.5); PLATELET COUNT (AUTO) 159 K/uL (152-348); RED BLOOD CELL COUNT(AUTO) 4.78 MIL/uL (4.06-5.63); WHITE BLOOD COUNT (AUTO) 8.2 K/uL (3.6-10.2)
[2024-10-28] MEDS: TRANEXAMIC ACID 1,000 MG/10 ML VIAL IR ONE (02:00)
[2024-10-28] MEDS: LIDOCAINE 4% TOPICAL 50 ML BOTTLE TP ONE (02:00)
[2024-10-28] MEDS: OXYMETAZOLINE NASAL 0.05% 15 ML SPRAY NS ONE (02:00)
[2024-10-28 02:02] LABS: DIFFERENTIAL COMMENT 1
[2024-10-28 02:11] LABS: CALCIUM 8.4 mg/dL (8.5-10.1); CARBON DIOXIDE 28 mmol/L (21-32); CHLORIDE 106 mmol/L (98-107); CREATININE 0.8 mg/dL (0.6-1.3); GLUCOSE 113 mg/dL (74-106); POTASSIUM 3.2 mmol/L (3.5-5.1); SODIUM SERUM 140 mmol/L (136-145); UREA NITROGEN, BLOOD 21 mg/dL (7-18)
[2024-10-28] MEDS ORDERED: POTASSIUM CHLORIDE 20 MEQ TAB.PRT.SR ONE (03:02)
[2024-10-28] MEDS: POTASSIUM CHLORIDE 20 MEQ TAB.PRT.SR PO ONE (03:09)
[2024-10-28 07:14] VITALS: BP 145/90; TEMP 98; O2SAT 96
== END 2024-10-28 07:14 | disposition home or self-care (01) ==
LOC: ER 00:45
DX: R04.0 Epistaxis (principal); E87.6 Hypokalemia; Z79.82 Long term (current) use of aspirin; Z96.653 Presence of artificial knee joint, bilateral
CPT/HCPCS: 99284; 96374; 80048; 85025; 84145; 85610; 87040 ×2; 36415; 30901; J1940; A4606; A4663; J3590

== ENCOUNTER 2025-01-12 23:56 | Emergency (ER) | payer MEDICARE ==
[~2025-01-12] VITALS: Ht 188 cm; Wt 129.7 kg
[2025-01-13 00:58] LABS: BASOPHILS # (AUTO) 0.1 K/UL (0.0-0.2); EOSINOPHILS # (AUTO) 0.2 K/uL (0.0-0.7); EOSINOPHILS % (AUTO) 3.3 % (0.0-7.0); HEMATOCRIT 41.3 % (36.7-47.1); HEMOGLOBIN 13.8 g/dL (12.5-16.3); LYMPHOCYTES # (AUTO) 1.4 K/uL (0.8-4.8); LYMPHOCYTES % (AUTO) 20.7 % (20.5-51.5); MEAN CORPUSCULAR HEMOGLOBIN 28.6 uug (23.8-33.4); MEAN CORPUSCULAR HGB CONC 33 g/dL (32.5-36.3); MEAN CORPUSCULAR VOLUME 85.4 fL (73.0-96.2); MONOCYTES # (AUTO) 0.4 K/uL (0.1-1.30); MONOCYTES % (AUTO) 6.5 % (0.0-11.0); NEUTROPHILS # (AUTO) 4.7 K/uL (1.8-8.9); NEUTROPHILS % (AUTO) 68.5 % (38.5-71.5); PLATELET COUNT (AUTO) 146 K/uL (152-348); RED BLOOD CELL COUNT(AUTO) 4.84 MIL/uL (4.06-5.63); RED CELL DISTRIBUTION WIDTH 14.7 % (12.1-16.2); WHITE BLOOD COUNT (AUTO) 6.8 K/uL (3.6-10.2)
[2025-01-13 01:01] LABS: DIFFERENTIAL COMMENT 1
[2025-01-13 01:14] LABS: CALCIUM 8.3 mg/dL (8.5-10.1); CARBON DIOXIDE 30 mmol/L (21-32); CHLORIDE 107 mmol/L (98-107); CREATININE 0.9 mg/dL (0.6-1.3); GLUCOSE 88 mg/dL (74-106); POTASSIUM 3.8 mmol/L (3.5-5.1); SODIUM SERUM 141 mmol/L (136-145); UREA NITROGEN, BLOOD 18 mg/dL (7-18)
[2025-01-13 01:26] LABS: ALANINE AMINOTRANSFERASE 15 U/L (16-63); ALBUMIN 3.1 g/dL (3.4-5.0); ALKALINE PHOSPHATASE 70 U/L (50-136); ASPARTATE AMINOTRANSFERASE 14 U/L (15-37); BILIRUBIN,DIRECT 0.1 mg/dL (0.0-0.2); BILIRUBIN,TOTAL 0.3 mg/dL (0.2-1.0); NT-PRO BNP 85 pg/mL (0-125); TOTAL PROTEIN, SERUM 6.5 g/dL (6.4-8.2)
[2025-01-13] MEDS ORDERED: FURO20TA4 PO (02:59)
[2025-01-13] MEDS ORDERED: POTA10CA43 PO (02:59)
[2025-01-13 03:19] VITALS: BP 145/83; TEMP 98; O2SAT 96
== END 2025-01-13 03:19 | disposition home or self-care (01) ==
LOC: ER 01-13 00:05
DX: R60.0 Localized edema (principal); E88.09 Other disorders of plasma-protein metabolism, not elsewhere classified; I11.0 Hypertensive heart disease with heart failure; I50.9 Heart failure, unspecified; M79.662 Pain in left lower leg; R06.02 Shortness of breath; Z79.82 Long term (current) use of aspirin; Z79.899 Other long term (current) drug therapy
CPT/HCPCS: 36415; 71045; 84443; 85025; A4606; A4663

== ENCOUNTER 2025-07-25 14:21 | Inpatient (IN) | payer MEDICARE ==
[~2025-07-25] VITALS: Ht 188 cm; Wt 109.8 kg
[2025-07-25] VITALS (13 sets, daily range): BP systolic 120–161; BP diastolic 76–119; TEMP 98.3; O2SAT 90–99
[~2025-07-25 14:21] MED LIST changes: +ACET-3752 PO; -ACET325T53 PO; +FURO20TA4 PO; +ONDA-243 PO; -ONDA4TAB11 PO; +POTA10CA94 PO; -THIA100T74 PO; +THIA100T78 PO
[2025-07-25 15:43] LABS: PLATELET COUNT (AUTO) 159 K/uL (152-348); RED BLOOD CELL COUNT(AUTO) 4.94 MIL/uL (4.06-5.63); RED CELL DISTRIBUTION WIDTH 15.4 % (12.1-16.2); WHITE BLOOD COUNT (AUTO) 6.8 K/uL (3.6-10.2)
[2025-07-25 15:54] LABS: CREATININE 0.8 mg/dL (0.6-1.3); SODIUM SERUM 140 mmol/L (136-145); UREA NITROGEN, BLOOD 17 mg/dL (7-18)
[2025-07-25 16:00] LABS: ASPARTATE AMINOTRANSFERASE 14 U/L (15-37); TOTAL PROTEIN, SERUM 7.2 g/dL (6.4-8.2)
[2025-07-25] MEDS ORDERED: FUROSEMIDE 40 MG/4 ML VIAL ONE (16:20)
[2025-07-25] MEDS: FUROSEMIDE 40 MG/4 ML VIAL IV ONE (16:24)
[2025-07-25] MEDS ORDERED: MAGNESIUM HYDROXIDE 30 ML LIQUID UDC PO PRN (17:30)
[2025-07-25] MEDS ORDERED: ALBUTEROL SULFATE 2.5 MG/3 ML NEBU NEB PRN (17:30)
[2025-07-25] MEDS ORDERED: REMEDY ESSENTIAL ZINC PASTE 113 GM TP PRN (17:30)
[2025-07-25] MEDS ORDERED: ONDANSETRON 4 MG/2 ML VIAL IV PRN (17:30)
[2025-07-25] MEDS: VANCOMYCIN IV 1,250 MG in IV DEXTROSE 5% 250 ML IV SCH (17:45)
[2025-07-25] MEDS ORDERED: VALS160T2 PO (18:59)
[2025-07-25] MEDS ORDERED: FURO-151 PO (18:59)
[2025-07-25] MEDS ORDERED: POTA10CA94 PO (19:02)
[2025-07-25] MEDS ORDERED: PANT40TA49 PO (19:02)
[2025-07-25] MEDS ORDERED: ACET-2030 PO (19:03)
[2025-07-25] MEDS ORDERED: IPRATROPIUM BROMIDE 0.5 MG/2.5 ML NEBU NEB SCH (19:30)
[2025-07-25] MEDS: IPRATROPIUM BROMIDE 0.5 MG/2.5 ML NEBU NEB SCH (20:08)
[2025-07-25] MEDS: ALBUTEROL SULFATE 2.5 MG/3 ML NEBU NEB SCH (20:08)
[2025-07-25] MEDS: FUROSEMIDE 40 MG/4 ML VIAL IV SCH (21:03)
[2025-07-25] MEDS ORDERED: PIPERACILLIN/TAZOBACTAM/D5W 50 ML IV ONE (21:20)
[2025-07-25] MEDS: PIPERACILLIN SODIUM/TAZOBACTAM 3.375 G in IV DEXTROSE 5% 50 ML IV SCH (21:26)
[2025-07-26] VITALS (57 sets, daily range): BP systolic 91–160; BP diastolic 53–135; TEMP 98.3–99; O2SAT 89–100
[2025-07-26] MEDS ORDERED: PIPERACILLIN/TAZOBACTAM/D5W 50 ML IV ONE (01:03)
[2025-07-26] MEDS: METOPROLOL TARTRATE 5 MG/5 ML VIAL IVP PRN (01:26)
[2025-07-26 03:45] LABS: ABG BASE EXCESS 2.2 mmol/L (-2.0-3.0); ABG HCO3 26.7 mmol/L (21.0-28.0); ABG PCO2 41.0 mmHg (35.0-48.0); ABG PH 7.431 (7.350-7.450); ABG PO2 75.2 mmHg (83.0-108.0); ABG SITE LEFT BRACHIAL; ABG TOTAL HEMOGLOBIN 14.8 G/dL (13.5-17.5); AaDO2 95.4 mmHg; FIO2 28.0 %; FLOW, BLOOD GAS 2.00 L/min (0.00-30.00)
[2025-07-26 04:43] LABS: PLATELET COUNT (AUTO) 162 K/uL (152-348); RED BLOOD CELL COUNT(AUTO) 4.87 MIL/uL (4.06-5.63); RED CELL DISTRIBUTION WIDTH 14.9 % (12.1-16.2); WHITE BLOOD COUNT (AUTO) 7.8 K/uL (3.6-10.2)
[2025-07-26 04:59] LABS: CREATININE 1.0 mg/dL (0.6-1.3); SODIUM SERUM 143 mmol/L (136-145); UREA NITROGEN, BLOOD 16 mg/dL (7-18)
[2025-07-26 06:14] LABS: ABG BASE EXCESS 5.6 mmol/L (-2.0-3.0); ABG HCO3 29.2 mmol/L (21.0-28.0); ABG PCO2 39.1 mmHg (35.0-48.0); ABG PH 7.491 (7.350-7.450); ABG PO2 70.1 mmHg (83.0-108.0); ABG SITE LEFT BRACHIAL; ABG TOTAL HEMOGLOBIN 14.5 G/dL (13.5-17.5); AaDO2 95.3 mmHg; FIO2 28.0 %; FLOW, BLOOD GAS 2.00 L/min (0.00-30.00)
[2025-07-26] MEDS: METOPROLOL SUCCINATE XL 50 MG TAB.SR.24H PO SCH (08:26)
[2025-07-26] MEDS: FOLIC ACID 1 MG TABLET PO SCH (08:26)
[2025-07-26] MEDS: APIXABAN 5 MG TABLET PO SCH (08:27)
[2025-07-26] MEDS ORDERED: CYANOCOBALAMIN 1000 MCG/ML VIAL IM SCH (09:00)
[2025-07-26] MEDS ORDERED: AMLODIPINE 5 MG TABLET PO SCH (09:00)
[2025-07-26] MEDS ORDERED: VALSARTAN 160 MG TABLET PO SCH (09:00)
[2025-07-26] MEDS ORDERED: ASPIRIN 81 MG TAB.CHEW PO SCH (09:00)
[2025-07-26] MEDS: POTASSIUM CHLORIDE 50 ML IV SCH (09:23)
[2025-07-26] MEDS: MEDIHONEY= THERAHONEY 1.5 OZ TUBE TOP SCH (15:27)
[2025-07-27] VITALS (32 sets, daily range): BP systolic 106–150; BP diastolic 63–99; TEMP 98–98.2; O2SAT 91–100
[2025-07-27] MEDS: ACETAMINOPHEN 325 MG TABLET PO PRN (02:19)
[2025-07-27] MEDS: TRAMADOL HCL 50 MG TABLET PO PRN (03:18)
[2025-07-27 05:14] LABS: PLATELET COUNT (AUTO) 139 K/uL (152-348); RED BLOOD CELL COUNT(AUTO) 4.49 MIL/uL (4.06-5.63); RED CELL DISTRIBUTION WIDTH 15.2 % (12.1-16.2); WHITE BLOOD COUNT (AUTO) 7.2 K/uL (3.6-10.2)
[2025-07-27 05:24] LABS: CREATININE 1.2 mg/dL (0.6-1.3); SODIUM SERUM 146 mmol/L (136-145); UREA NITROGEN, BLOOD 24 mg/dL (7-18)
[2025-07-28] VITALS (21 sets, daily range): BP systolic 112–143; BP diastolic 65–87; TEMP 97.6–98.4; O2SAT 91–100
[2025-07-28 04:48] LABS: PLATELET COUNT (AUTO) 142 K/uL (152-348); RED BLOOD CELL COUNT(AUTO) 4.61 MIL/uL (4.06-5.63); RED CELL DISTRIBUTION WIDTH 15.3 % (12.1-16.2); WHITE BLOOD COUNT (AUTO) 7.5 K/uL (3.6-10.2)
[2025-07-28 04:56] LABS: CREATININE 1.2 mg/dL (0.6-1.3); SODIUM SERUM 143 mmol/L (136-145); UREA NITROGEN, BLOOD 23 mg/dL (7-18)
[2025-07-29] VITALS (14 sets, daily range): BP systolic 96–147; BP diastolic 47–83; TEMP 97.5–98.4; O2SAT 92–99
[2025-07-30] MEDS ORDERED: ONDA2VIA4 IV (01:26)
[2025-07-30] MEDS ORDERED: METO-357 PO (01:26)
[2025-07-30] MEDS ORDERED: BUME2TAB7 PO (01:26)
[2025-07-30] MEDS ORDERED: HONE44PA TP (01:26)
[2025-07-30] MEDS ORDERED: MAGN400O6 PO (01:26)
[2025-07-30] MEDS ORDERED: FOLI1TAB94 PO (01:26)
[2025-07-30] MEDS ORDERED: VANC750P14 IV (01:26)
[2025-07-30] MEDS ORDERED: APIX5TAB PO (01:26)
[2025-07-30] MEDS ORDERED: PIPE3.3749 IV (01:26)
[2025-07-30] MEDS ORDERED: HYDR20VI17 IV (01:26)
[2025-07-30] MEDS ORDERED: BUMETANIDE 1 MG TABLET PO SCH (09:00)
[2025-07-30] MEDS ORDERED: ALBU2.5V13 NEB (12:15)
[2025-07-30] MEDS ORDERED: FURO10VI IV (12:17)
[2025-07-30] MEDS ORDERED: [UNRECOGNIZED DRUG - CODE] IV (12:21)
[2025-07-30] MEDS ORDERED: VANC1.257 IV (12:22)
[2025-07-30] MEDS ORDERED: z-guard TOP (12:26)
== END 2025-07-29 22:00 | DRG 291 ==
LOC: ER 14:21 → CCU 18:41 → TELE3 07-28 05:47
PROVIDERS: ADMIT Student in an Organized Health Care Education/Training Program; ATTEND Student in an Organized Health Care Education/Training Program
PROC: 5A09357 Assistance with Respiratory Ventilation, Less than 24 Consecutive Hours, Continuous Positive Airway Pressure (ICD-10-PCS; principal; 2025-07-25)
DX: I11.0 Hypertensive heart disease with heart failure (principal); I50.33 Acute on chronic diastolic (congestive) heart failure; J96.91 Respiratory failure, unspecified with hypoxia; L03.115 Cellulitis of right lower limb; E44.1 Mild protein-calorie malnutrition; I87.312 Chronic venous hypertension (idiopathic) with ulcer of left lower extremity; L03.116 Cellulitis of left lower limb; E66.9 Obesity, unspecified; L97.822 Non-pressure chronic ulcer of other part of left lower leg with fat layer exposed; Z96.1 Presence of intraocular lens; Z98.41 Cataract extraction status, right eye; L97.522 Non-pressure chronic ulcer of other part of left foot with fat layer exposed; I48.0 Paroxysmal atrial fibrillation; Z68.31 Body mass index [BMI] 31.0-31.9, adult; N32.81 Overactive bladder; Z96.653 Presence of artificial knee joint, bilateral; Z79.82 Long term (current) use of aspirin; Z79.899 Other long term (current) drug therapy; M17.0 Bilateral primary osteoarthritis of knee
CPT/HCPCS: 36415; 36600; 71045; 71111; 82803; 83605; 83735; 84100; 84443; 84484; 85025; 85651; 85730; 86140; 87040; 93307; 94640; 94760; 99082-TC; A4606; A4663; G0378; J1938; J2543; J3480; J3490; J3590; J7040; J7050

== ENCOUNTER 2025-07-29 10:47 | Inpatient (IN) | payer MEDICARE ==
[~2025-07-29] VITALS: Ht 188 cm; Wt 122.2 kg
[~2025-07-29 10:47] MED LIST changes: +ACET-2030 PO; -ACET-3752 PO; -ALBU2.5V38 NEB; -AMLO-212 PO; -CLON0.1T PO; -CYAN10006 IM; -ENOX40DI SQ; -FOLI1TAB94 PO; +FURO-151 PO; -FURO20TA4 PO; -IPRA0.2S48 NEB; -IPRA0.2S6 NEB; -MAGN400O6 PO; -ONDA-243 PO; +PANT40TA49 PO; -THIA100T78 PO; +VALS160T2 PO
[2025-07-29 11:28] VITALS: BP 132/83; TEMP 97.7
[2025-07-29 12:54] VITALS: BP 132/83; TEMP 97.7
[2025-07-29 19:47] VITALS: BP 141/84; TEMP 98; O2SAT 91
[2025-07-30] VITALS (9 sets, daily range): BP systolic 100–144; BP diastolic 74–92; TEMP 97.7–98.5; O2SAT 91–97
[2025-07-30] MEDS ORDERED: IPRA0.2S48 NEB (01:26)
[2025-07-30] MEDS ORDERED: ONDA2VIA4 IV (01:26)
[2025-07-30] MEDS ORDERED: BUME2TAB7 PO (01:26)
[2025-07-30] MEDS ORDERED: MAGN400O6 PO (01:26)
[2025-07-30] MEDS ORDERED: PIPE3.3749 IV (01:26)
[2025-07-30] MEDS ORDERED: FOLI1TAB94 PO (01:26)
[2025-07-30] MEDS ORDERED: ALBU2.5V38 NEB (01:26)
[2025-07-30] MEDS ORDERED: VANC750P14 IV (01:26)
[2025-07-30] MEDS ORDERED: APIX5TAB PO (01:26)
[2025-07-30] MEDS ORDERED: HYDR20VI17 IV (01:26)
[2025-07-30] MEDS ORDERED: METO-357 PO (01:26)
[2025-07-30] MEDS ORDERED: HONE44PA TP (01:26)
[2025-07-30] MEDS ORDERED: VANCOMYCIN IV 200 ML ONE (03:03)
[2025-07-30] MEDS ORDERED: VANCOMYCIN HCL 500 MG VIAL ONE (03:04)
[2025-07-30] MEDS ORDERED: MAGNESIUM HYDROXIDE 30 ML LIQUID UDC PO PRN (08:30)
[2025-07-30] MEDS ORDERED: ALBUTEROL SULFATE 2.5 MG/3 ML NEBU NEB PRN (08:30)
[2025-07-30] MEDS ORDERED: Medication Not On Formulary EA (Bumetanide (Bumex) 2 MG) PO SCH (09:00)
[2025-07-30] MEDS: POTASSIUM CHLORIDE 10 MEQ TAB.PRT.SR PO SCH (09:04)
[2025-07-30] MEDS: FOLIC ACID 1 MG TABLET PO SCH (09:05)
[2025-07-30] MEDS: VALSARTAN 160 MG TABLET PO SCH (09:05)
[2025-07-30] MEDS: ASPIRIN 81 MG TAB.CHEW PO SCH (09:05)
[2025-07-30] MEDS: ACETAMINOPHEN 500 MG TABLET PO PRN (09:05)
[2025-07-30] MEDS: BUMETANIDE 1 MG TABLET PO SCH (09:05)
[2025-07-30] MEDS: METOPROLOL SUCCINATE XL 50 MG TAB.SR.24H PO SCH (09:06)
[2025-07-30] MEDS: APIXABAN 5 MG TABLET PO SCH (09:11)
[2025-07-30] MEDS: PANTOPRAZOLE SODIUM 40 MG TABLET.DR PO SCH (09:13)
[2025-07-30] MEDS: IPRATROPIUM BROMIDE 0.5 MG/2.5 ML NEBU NEB SCH (11:23)
[2025-07-30] MEDS ORDERED: PIPERACILLIN SODIUM/TAZO 3.375 GM VIAL IV SCH (12:00)
[2025-07-30] MEDS ORDERED: ALBU2.5V13 NEB (12:15)
[2025-07-30] MEDS ORDERED: FURO10VI IV (12:17)
[2025-07-30] MEDS ORDERED: [UNRECOGNIZED DRUG - CODE] IV (12:21)
[2025-07-30] MEDS ORDERED: VANC1.257 IV (12:22)
[2025-07-30] MEDS ORDERED: z-guard TOP (12:26)
[2025-07-31] VITALS (16 sets, daily range): BP systolic 94–133; BP diastolic 60–80; TEMP 97.7–98.3; O2SAT 92–98
[2025-07-31] MEDS: MEDIHONEY= THERAHONEY 1.5 OZ TUBE TOP SCH (10:21)
[2025-08-01] VITALS (10 sets, daily range): BP systolic 126–139; BP diastolic 68–79; TEMP 98.1–98.4; O2SAT 95–98
[2025-08-02] VITALS (15 sets, daily range): BP systolic 120–127; BP diastolic 49–61; TEMP 98.2–98.5; O2SAT 93–99
[2025-08-02] MEDS: ARGININE/GLUTAMINE/CALCIUM BMB 1 EACH POWD.PACK PO SCH (08:45)
[2025-08-03] VITALS (14 sets, daily range): BP systolic 105–145; BP diastolic 61–89; TEMP 97.6–98.4; O2SAT 94–98
[2025-08-03 09:05] LABS: PLATELET COUNT (AUTO) 175 K/uL (152-348); RED BLOOD CELL COUNT(AUTO) 4.83 MIL/uL (4.06-5.63); RED CELL DISTRIBUTION WIDTH 14.7 % (12.1-16.2); WHITE BLOOD COUNT (AUTO) 6.3 K/uL (3.6-10.2)
[2025-08-03 09:10] LABS: CREATININE 1.1 mg/dL (0.6-1.3); SODIUM SERUM 145 mmol/L (136-145); UREA NITROGEN, BLOOD 26 mg/dL (7-18)
[2025-08-04] VITALS (15 sets, daily range): BP systolic 112–138; BP diastolic 57–78; TEMP 97.6–98.3; O2SAT 95–98
[2025-08-04] MEDS: TRAMADOL HCL 50 MG TABLET PO SCH (02:07)
[2025-08-04] MEDS ORDERED: TRAMADOL HCL 50 MG TABLET PO PRN (07:24)
[2025-08-05] VITALS (14 sets, daily range): BP systolic 106–115; BP diastolic 50–80; TEMP 97.6–98.4; O2SAT 94–99
[2025-08-05] MEDS: HYDROCODONE/APAP 5-325MG TABLET PO SCH (20:50)
[2025-08-06] VITALS (9 sets, daily range): BP systolic 126–127; BP diastolic 70–76; TEMP 97.6–98.3; O2SAT 95–99
== END 2025-08-06 15:00 | disposition home health service (06) | DRG 291 ==
PROVIDERS: ADMIT Physical Medicine & Rehabilitation Pain Medicine; ATTEND Internal Medicine
DX: I11.0 Hypertensive heart disease with heart failure (principal); I50.33 Acute on chronic diastolic (congestive) heart failure; J96.90 Respiratory failure, unspecified, unspecified whether with hypoxia or hypercapnia; E44.0 Moderate protein-calorie malnutrition; L03.115 Cellulitis of right lower limb; L03.116 Cellulitis of left lower limb; E66.9 Obesity, unspecified; Z68.34 Body mass index [BMI] 34.0-34.9, adult; I87.2 Venous insufficiency (chronic) (peripheral); R07.89 Other chest pain; W19.XXXD Unspecified fall, subsequent encounter; I48.0 Paroxysmal atrial fibrillation; I25.10 Atherosclerotic heart disease of native coronary artery without angina pectoris; L97.529 Non-pressure chronic ulcer of other part of left foot with unspecified severity; M19.90 Unspecified osteoarthritis, unspecified site; N32.81 Overactive bladder; Z96.653 Presence of artificial knee joint, bilateral
CPT/HCPCS: 36415; 85025; 94640; 94664; 94760; 97535-GO-CO; A4663; A9150; J3373; J3590